=== PATIENT | female | born 1955 | race Caucasian/White ===

== ENCOUNTER 2019-07-31 13:48 | Emergency (ER) | payer BC ==
[2019-07-31 14:26] LABS: ABSOLUTE MONOCYTES (AUTO) 0.7 10^3/uL (0.1-1.4); BASOPHILS % (AUTO) 0.6 % (0-2); EOSINOPHILS % (AUTO) 0.5 % (0-6); HEMATOCRIT 43.9 % (36.0-47.0); HEMOGLOBIN 15.6 g/dL (12.0-15.5); LYMPHOCYTES % (AUTO) 20.2 % (13-45); MEAN CORPUSCULAR HEMOGLOBIN 33.7 pg (27.0-33.4); MEAN CORPUSCULAR HGB CONC 35.6 g/dL (32.0-36.0); MEAN CORPUSCULAR VOLUME 95 fl (80-97); MONOCYTES % (AUTO) 14.8 % (3-13); PLATELET COUNT 205 10^3/uL (150-450); RED BLOOD COUNT 4.64 10^6/uL (3.72-5.28); RED CELL DISTRIBUTION WIDTH 12.9 % (11.5-14.0); SEGMENTED NEUTROPHILS % (AUTO) 63.9 % (42-78); TOTAL CELLS COUNTED % (AUTO) 100 %; WHITE BLOOD COUNT 4.8 10^3/uL (4.0-10.5)
[2019-07-31 14:42] LABS: ALBUMIN 4.1 g/dL (3.5-5.0); ALKALINE PHOSPHATASE 52 U/L (38-126); ANION GAP 12 (5-19); ASPARTATE AMINO TRANSFERASE 37 U/L (14-36); BILIRUBIN,DIRECT 0.2 mg/dL (0.0-0.4); BILIRUBIN,TOTAL 0.8 mg/dL (0.2-1.3); BLOOD UREA NITROGEN 24 mg/dL (7-20); CALCIUM 8.9 mg/dL (8.4-10.2); CARBON DIOXIDE 25 mmol/L (22-30); CHLORIDE 101 mmol/L (98-107); CREATINE KINASE 40 U/L (30-135); GLUCOSE 133 mg/dL (75-110); TOTAL PROTEIN 7.2 g/dL (6.3-8.2)
[2019-07-31 14:54] LABS: CREATINE KINASE MB 0.99 ng/mL (<4.55)
[2019-07-31 14:58] LABS: TROPONIN I < 0.012 ng/mL
[2019-07-31] MEDS ORDERED: NORMAL SALINE 1000 ML 1,000 ML IV PRN (15:01)
--- NOTE | 2019-07-31 15:01 | ER Document Report ---
ED General - General Chief Complaint: Syncope Stated Complaint: WEAKNESS Time Seen by Provider: 07/31/19 14:49 Mode of Arrival: Medic Information source: Patient Notes: 64-year-old female arrives by EMS after she was having passing out spells while at work. She had a low blood pressure in route and was given IV fluids but felt much improved as she arrived. Patient reports she was having a foggy sensorium while at work. Patient has a history of viral myocarditis, patient was initially followed in 2012 for this by [facility] Dr. Goff and then in [place] Dr. Mar and has been followed by Dr. Turner in [place]. Patient reports she does not take any medicines to increase her blood pressure but does take a heart medicine Coreg and lisinopril. Patient takes 25 twice daily of the Coreg and we think the low-dose lisinopril 10 mg. Patient reports she does not take blood pressure medicines but this is for her heart. Patient's blood pressure was 83/66 upon arrival and I checked it after CT was done with a 119/73. Dinah who works for the patient there at the [facility] saw her pass out and fall backwards but 2 people helped her from falling. Patient has no complaint of head or neck pain or back pain. Also Mack the chairperson and Alanna who engages and financing is there at her bedside. Patient gives permission for her to be seen in front of them. Patient has increased BUN and creatinine of 24 and 1.49. Patient denies any chest pain back pain abdominal pain extremity pain. Indeed her fulfillment representative are very strong and she has moist palm. Ruby reports there is a little kiddy URI going around the office there at the [facility]. Patient reports some rhinorrhea and occasional cough. Says she has the same symptoms. All exposed to the little children coming into the [facility] but they deny any exposure to anyone from [place] and unknown if any of these have traveled himself. Patient denies any traveling herself within the last 6 months. She just got her house with a corporate pilot light on with gas but this has not been hooked up for heating gas at this time. She denies any cephalgia. Patient reports her blood pressure usually runs around 120/80 and does not know whether she has been in A. fib in the past. Indeed she did not realize that the lisinopril and Coreg are also blood pressure medications - HPI Onset: Just prior to arrival - Related Data Allergies/Adverse Reactions: No Known Allergies Allergy (Verified 07/31/19 14:22) Past Medical History - General Information source: Patient, Friend - Also Dinah Snidern and Mack good friends coworkers. - Social History Smoking Status: Never Smoker Cigarette use (# per day): No Chew tobacco use (# tins/day): No Smoking Education Provided: No Frequency of alcohol use: Social Drug Abuse: None Lives with: Other - Own home Family History: Reviewed & Not Pertinent Patient has suicidal ideation: No Patient has homicidal ideation: No - Past Medical History Cardiac Medical History: Reports: Other - Viral cardiomyopathy as per patient history Pulmonary Medical History: Reports: None EENT Medical History: Reports: None Endocrine Medical History: Reports: None Renal/ Medical History: Reports: None Past Surgical History: Reports: Hx Appendectomy Review of Systems - Review of Systems Constitutional: See HPI, Malaise, Weakness EENT: No symptoms reported Cardiovascular: No symptoms reported Respiratory: No symptoms reported Gastrointestinal: No symptoms reported Genitourinary: No symptoms reported Female Genitourinary: No symptoms reported Musculoskeletal: No symptoms reported Skin: No symptoms reported Hematologic/Lymphatic: No symptoms reported Neurological/Psychological: No symptoms reported Physical Exam - Vital signs Vitals: Resp Pulse Ox 21 H 98 07/31/19 13:56 07/31/19 13:56 Interpretation: Hypotensive - HEENT Head: Normocephalic Eyes: Normal Conjunctiva: Normal Cornea: Normal Extraocular movements intact: Yes Eyelashes: Normal Pupils: PERRL - Cardiovascular Rhythm: Irregularly irregular Heart sounds: Normal auscultation Murmur: No Friction rub: No Tom's crunch: No - Abdominal Inspection: Normal Distension: No distension Bowel sounds: Normal Tenderness: Nontender Organomegaly: No organomegaly - Back Back: Normal - Extremities General upper extremity: Normal inspection General lower extremity: Normal inspection - Neurological Neuro grossly intact: Yes Cognition: Normal Orientation: AAOx4 [place] Coma Scale Eye Opening: Spontaneous [place] Coma Scale Verbal: Oriented Speech: Normal Cranial nerves: Normal Cerebellar coordination: Normal - Psychological Associated symptoms: Normal affect - Skin Skin Temperature: Warm Skin Moisture: Dry Course - Vital Signs Vital signs: Temp Pulse Resp BP Pulse Ox 98.1 F 14 125/102 H 100 07/31/19 14:38 07/31/19 18:15 07/31/19 18:15 07/31/19 18:24 - Laboratory Result Diagrams: 07/31/19 14:04 07/31/19 14:04 Laboratory results interpreted by me: 07/31/19 07/31/19 14:04 14:04 Hgb 15.6 H MCH 33.7 H [place] % (Auto) 14.8 H BUN 24 H Creatinine 1.49 H Est GFR ( Amer) 43 L Est GFR (MDRD) Non-Af 35 L Glucose 133 H AST 37 H - Diagnostic Test Radiology reviewed: Reports reviewed - EKG Interpretation by Me EKG shows normal: Sinus rhythm Rate: Normal - 97 Rhythm: A.Fib Critical Care Note - Critical Care Note Total time excluding time spent on procedures (mins): 90 Comments: Patient's orthostatics were within normal limits and I agree with patient's wish to be discharged home. 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 Mills saw this patient at 1850 Discharge - Discharge Clinical Impression: Atrial fibrillation Qualifiers: Atrial fibrillation type: unspecified persistent Qualified Code(s): I48.19 - Other persistent atrial fibrillation Hypotension Qualifiers: Hypotension type: orthostatic hypotension Qualified Code(s): I95.1 - Orthostatic hypotension Condition: Good Disposition: HOME, SELF-CARE Additional Instructions: Follow-up with personal doctor; return to ER as needed ;take medicines as directed; encourage fluids; get blood pressures checked before taking blood pres sure medicines and keep a record of this for your mixed crop and livestock farm worker
--- NOTE | 2019-07-31 15:20 | RADIOLOGY REPORT (SQ) ---
EXAM DESCRIPTION: CT HEAD WITHOUT COMPLETED DATE/TIME: 07/31/2019 3:10 pm REASON FOR STUDY: dizzy COMPARISON: None. TECHNIQUE: Axial images acquired through the brain without intravenous contrast. Images reviewed wi th bone, brain and subdural windows. Additional sagittal and coronal reconstructions were generated. Images stored on PACS. All CT scanners at this facility use dose modulation, iterative reconstruction, and/or weight based d osing when appropriate to reduce radiation dose to as low as reasonably achievable (ALARA). [facility]: Dose Right [facility]: CareDose [facility]: Dose Right [facility]: Teradose 4D [facility]: Apollidon RADIATION DOSE: CT Rad equipment meets quality standard of care and radiation dose reduction techniq ues were employed. CTDIvol: 53.2 mGy. DLP: 1044 mGy-cm. mGy. LIMITATIONS: None. FINDINGS: VENTRICLES: Normal size and contour. CEREBRUM: No masses. No hemorrhage. No midline shift. No evidence for acute infarction. Normal gra y/white matter differentiation. No areas of low density in the white matter. CEREBELLUM: No masses. No hemorrhage. No alteration of density. No evidence for acute infarction. EXTRAAXIAL SPACES: No fluid collections. No masses. ORBITS AND GLOBE: No intra- or extraconal masses. Normal contour of globe without masses. CALVARIUM: No fracture. PARANASAL SINUSES: No fluid or mucosal thickening. SOFT TISSUES: No mass or hematoma. OTHER: No other significant finding. IMPRESSION: NORMAL BRAIN CT WITHOUT CONTRAST. EVIDENCE OF ACUTE STROKE: NO. COMMENT: Quality ID # [id number]: Final reports with documentation of one or more dose reduction techniques (e.g., Automated exposure control, adjustment of the mA and/or kV according to patient size, use of iterative reconstruction technique) TECHNICAL DOCUMENTATION: JOB ID: [id number] [employer]- All Rights Reserved Reading location - IP/workstation name: [email or web address]
--- NOTE | 2019-07-31 15:44 | RADIOLOGY REPORT (SQ) ---
EXAM DESCRIPTION: CHEST SINGLE VIEW COMPLETED DATE/TIME: 07/31/2019 3:25 pm REASON FOR STUDY: syncopy COMPARISON: None. EXAM PARAMETERS: NUMBER OF VIEWS: One view. TECHNIQUE: Single frontal radiographic view of the chest acquired. RADIATION DOSE: NA LIMITATIONS: None. FINDINGS: LUNGS AND PLEURA: No opacities, masses or pneumothorax. No pleural effusion. MEDIASTINUM AND HILAR STRUCTURES: No masses. Contour normal. HEART AND VASCULAR STRUCTURES: Heart normal in size. Normal vasculature. BONES: No acute findings. HARDWARE: None in the chest. OTHER: No other significant finding. IMPRESSION: NO ACUTE RADIOGRAPHIC FINDING IN THE CHEST. TECHNICAL DOCUMENTATION: JOB ID: [id number] [employer]@- All Rights Reserved Reading location - IP/workstation name: [email or web address]
--- NOTE | 2019-07-31 16:24 | EKG REPORT ---
SEVERITY:- ABNORMAL ECG - ATRIAL FIBRILLATION, V-RATE 68-121 BORDERLINE T ABNORMALITIES, ANT-LAT LEADS PROLONGED QT INTERVAL : Confirmed by: Marisol Funes MD 31-Jul-2019 16:23:24
[2019-07-31 18:50] LABS: A TYPE INFLUENZA AG NEGATIVE (NEGATIVE); B INFLUENZA AG NEGATIVE (NEGATIVE)
[2019-07-31 19:13] VITALS: BP 117/58
[2019-07-31] MEDS ORDERED: ACETAMINOPHEN 325 MG TABLET PO ONE (19:19)
--- NOTE | 2019-07-31 19:50 | PDOC CONSULTATION ---
Consultation Consult Date: 07/31/19 Attending physician:: JENNIFER MOSES JR Provider Consulted: CARRIE BARRY Consult reason:: Atrial fibrillation History of Present Illness History of Present Illness: DEMOND THOMAS is a 64 year old female With the following active problems 1. Paroxysmal atrial fibrillation 2. 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 She works at the [employer]. She presented with constitutional symptoms and felt quite weak. She was found to be in atrial fibrillation. Ventricular rate is mildly increased. She appears to h ave had mild viral illness. Since admission at which time she was initially hypotensive and was found to be in mild GIOVANA-she responded to intravenous fluid resuscitation and feels a lot better. She is not symptomatic presently from atrial fibrillation. She reports having been cardioverted once. He was treated with systemic anticoagulation with rivaroxaban until 2014. Subsequently based on discussion with physician systemic anticoagulation was discontinued. She has never been cardioverted apart from that one time and has not been subjected to other therapies. She works at the [employer]. No tobacco use is reported Past Medical History Cardiac Medical History: Reports: Other - Viral cardiomyopathy as per patient history Pulmonary Medical History: Reports: None EENT Medical History: Reports: None Endocrine Medical History: Reports: None Renal/ Medical History: Reports: None Past Surgical History Past Surgical History: Reports: Appendectomy Social History Lives with: Other - Own home Smoking Status: Never Smoker Family History Family History: Reviewed & Not Pertinent Parental Family History Reviewed: No - No familial illnesses Children Family History Reviewed: NA Sibling(s) Family History Reviewed.: NA Medication/Allergy Home Medications: Azithromycin [Zithromax 250 mg Tablet] 250 mg PO ASDIR PRN #6 tablet 07/31/19 Mupirocin [Bactroban 2% Ointment 22 gm] 1 applic NASL HSP PRN #1 tube 07/31/19 Allergies/Adverse Reactions: No Known Allergies Allergy (Verified 07/31/19 14:22) Review of Systems Constitutional: PRESENT: chills, weakness Eyes: PRESENT: as per HPI Nose, Mouth, and Throat: PRESENT: as per HPI Neurological: PRESENT: as per HPI Endocrine: PRESENT: as per HPI Hematologic/Lymphatic: PRESENT: as per HPI Physical Exam Vital Signs: Temp Pulse Resp BP Pulse Ox 100.9 F H 106 H 20 117/58 L 99 07/31/19 19:27 07/31/19 19:12 07/31/19 19:12 07/31/19 19:12 07/31/19 19:12 Intake & Output 07/30/19 07/31/19 08/01/19 06:59 06:59 06:59 Intake Total 1000 Balance 1000 Weight 102 kg General appearance: PRESENT: cooperative, mild distress Head exam: PRESENT: atraumatic, normocephalic Eye exam: PRESENT: conjunctiva pink, EOMI Respiratory exam: PRESENT: clear to auscultation luba, symmetrical, unlabored Cardiovascular exam: PRESENT: irregular rhythm, +S1, +S2 Pulses: PRESENT: normal radial pulses GI/Abdominal exam: PRESENT: soft Rectal exam: PRESENT: deferred Musculoskeletal exam: PRESENT: normal inspection Neurological exam: PRESENT: alert, awake, oriented to person, oriented to place, oriented to time, oriented to situation Psychiatric exam: PRESENT: appropriate affect Skin exam: PRESENT: dry, intact, normal color Results Laboratory Results: 07/31/19 14:04 07/31/19 14:04 07/31/19 07/31/19 07/31/19 14:04 14:04 14:04 WBC 4.8 RBC 4.64 Hgb 15.6 H Hct 43.9 MCV 95 MCH 33.7 H MCHC 35.6 RDW 12.9 Plt Count 205 Seg Neutrophils % 63.9 Sodium 138.2 Potassium 4.0 Chloride 101 Carbon Dioxide 25 Anion Gap 12 BUN 24 H Creatinine 1.49 H Est GFR ( Amer) 43 L Glucose 133 H Calcium 8.9 Magnesium 2.3 Total Bilirubin 0.8 AST 37 H Alkaline Phosphatase 52 Total Protein 7.2 Albumin 4.1 07/31/19 07/31/19 14:04 14:04 Creatine Kinase 40 CK-MB (CK-2) 0.99 Troponin I < 0.012 EKG Comments: Telemetry shows atrial fibrillation with rapid ventricular rate in the low 100 bpm range Twelve-lead EKG was reviewed independently by me and shows atrial fibrillation with controlled ventricular response. Impressions: Chest X-Ray 07/31/19 00:00 IMPRESSION: NO ACUTE RADIOGRAPHIC FINDING IN THE CHEST. Head CT 07/31/19 14:52 IMPRESSION: NORMAL BRAIN CT WITHOUT CONTRAST. EVIDENCE OF ACUTE STROKE: NO. Assessment & Plan - Diagnosis (1) Atrial fibrillation Qualifiers: Atrial fibrillation type: unspecified persistent Qualified Code(s): I48.19 - Other persistent atrial fibrillation; I48.1 - Persistent atrial fibrillation Plan: Atrial fibrillation with mildly increased ventricular rate probably in the setting of viral illness. She was also volume depleted at presentation and appears to be mildly volume depleted on exam Recommended holding home beta-alo and BAILEY inhibitor given volume depletion and hypotension. Would resume beta-alo sooner. I feel that given her history of paroxysmal atrial fibrillation and with report of structural heart disease i.e. myocarditis systemic anticoagulation with oral agents would be ideal. I discussed this with the patient. She is going to talk to her physician about this. It would be reasonable to continue beta-alo. This will bring down the ventricular rate and also suppress PV triggers. Prompt outpatient follow-up with the margarine churn operator as recommended. (2) Hypotension Qualifiers: Hypotension type: orthostatic hypotension Qualified Code(s): I95.1 - Orthostatic hypotension Plan: Patient has continued medications for myocarditis. This is resulted in some hyp otension in the face of volume depletion secondary to viral illness and probably poor oral intake today. It would be reasonable to hold off on these medications at the moment. - Notes Notes: Patient feels much better now and is desiring to go home. Prompt outpatient follow-up was recommended.
== END 2019-07-31 19:29 | disposition home or self-care (01) ==
LOC: ER 13:48
DX: I95.1 Orthostatic hypotension (principal); I48.19 Other persistent atrial fibrillation; R05 Cough; R53.81 Other malaise; R53.1 Weakness; Z86.79 Personal history of other diseases of the circulatory system; Z79.899 Other long term (current) drug therapy; J34.89 Other specified disorders of nose and nasal sinuses
CPT/HCPCS: 93005; 99291; 99292; 96360; 36415; 87040; 82553; 82550; 83735; 85025; 87077; 80053; 84484; 87804; 87150 ×26; 71045; 70450; 93010; J7030

== ENCOUNTER 2019-08-08 13:00 | Day surgery (SDC) | payer BC ==
[~2019-08-08 13:00] MED LIST: EPHEDRINE SULFATE INJ 50 MG/1 ML AMPULE ONE; PROPOFOL INJ 200 MG/20 ML VIAL IV ONE
[2019-08-08 15:51] VITALS: BP 137/80
--- NOTE | 2019-08-08 16:34 | PDOC CONSULTATION ---
Consultation Consult Date: 08/08/19 Attending physician:: CARRIE BARRY Provider Consulted: CARRIE BARRY Consult reason:: Atrial fibrillation History of Present Illness History of Present Illness: DEMOND THOMAS is a 64 year old female With medical history of myocarditis with subsequent normalization. She has history of atrial fibrillation and has been cardioverted previously. She presented to the hospital with atrial fibrillation rapid ventricular response. She was started on rate control medications and was discharged. She saw me in the office and we discussed treatment options and she wanted to pursue rhythm shinto. We decided to proceed with direct-current cardioversion. Prior to this patient was asked to start taking systemic anticoagulation in the form of apixaban orally. Apixaban 5 mg twice daily was prescribed and samples of this medicine were given. I informed the patient that patient has been taking this medication. Her other medications include carvedilol and lisinopril for cardiomyopathy. Since our office visit there has been no change in history. Patient is a non-smoker. She drinks alcohol occasionally. She works at the [employer]. There is no familial cardiac events reported. Past Medical History Cardiac Medical History: Denies: Coronary Artery Disease, Myocardial Infarction, Hypertension Pulmonary Medical History: Denies: Asthma, Bronchitis, Chronic Obstructive Pulmonary Disease (COPD), Pneumonia Neurological Medical History: Denies: Seizures Musculoskeltal Medical History: Denies: Arthritis Hematology: Denies: Anemia Past Surgical History Past Surgical History: Reports: Appendectomy Social History Smoking Status: Never Smoker Family History Family History: Reviewed & Not Pertinent Parental Family History Reviewed: No - No familial cardiac illnesses Children Family History Reviewed: NA Sibling(s) Family History Reviewed.: NA Medication/Allergy Home Medications: Carvedilol [Coreg] 2 tab PO BID 08/08/19 Lisinopril [Zestril] 1 tab PO DAILY 08/08/19 Allergies/Adverse Reactions: No Known Allergies Allergy (Verified 07/31/19 14:22) Review of Systems Constitutional: PRESENT: as per HPI, weakness Cardiovascular: PRESENT: palpitations Gastrointestinal: PRESENT: as per HPI Genitourinary: PRESENT: as per HPI Physical Exam Vital Signs: Temp Pulse Resp BP Pulse Ox 97.5 F 71 18 137/80 H 100 08/08/19 15:30 08/08/19 15:30 08/08/19 15:30 08/08/19 15:30 08/08/19 15:30 Intake & Output 08/07/19 08/08/19 08/09/19 06:59 06:59 06:59 Intake Total 672 Balance 672 Weight 99.79 kg General appearance: PRESENT: no acute distress, cooperative, obese Head exam: PRESENT: atraumatic, normocephalic Eye exam: PRESENT: conjunctiva pink, EOMI Mouth exam: PRESENT: moist Respiratory exam: PRESENT: clear to auscultation luba, symmetrical, unlabored Cardiovascular exam: PRESENT: irregular rhythm, +S1, +S2 Pulses: PRESENT: normal radial pulses GI/Abdominal exam: PRESENT: soft Rectal exam: PRESENT: deferred Musculoskeletal exam: PRESENT: ambulatory, normal inspection Neurological exam: PRESENT: alert, awake, oriented to person, oriented to place, oriented to time, oriented to situation Psychiatric exam: PRESENT: appropriate affect Skin exam: PRESENT: dry, intact, normal color Results EKG Comments: Telemetry shows atrial fibrillation with rapid ventricular response. Assessment & Plan - Diagnosis (1) Atrial fibrillation with rapid ventricular response Is this a current diagnosis for this admission?: Yes Plan: We will proceed with transesophageal echocardiogram. Risk and benefits of the procedure were discussed in the office and were reaffirmed today. Risks include damage to the lining of the esophagus, esophageal perforation, reactions to any of the medications used during the procedure. If there is no left atrial appendage thrombus will proceed with cardioversion. Cardioversion can result in skin mendoza or skin irritation or other arrhythmias for treatment for which can again be cardioversion. Small risk of stroke exists despite systemic anticoagulation. - Notes Notes: Anticipated echocardiogram. If there is no elevated appendage or other cardiac thrombus will proceed with direct-current cardioversion.
--- NOTE | 2019-08-09 13:58 | Discharge Summary ---
Discharge Summary (SDC) - Discharge Final Diagnosis: Atrial fibrillation Condition: Stable Forms: ASU Anesthesia D/C Instruction, Discharge POC-Surgical Service Treatment or Instructions: WITHIN 24 HOURS: NO DRIVING, NO DRINKING ALCOHOL. NO IMPORTANT DECISION. REST. NO EXERCISE TODAY. CONTINUE HOME MEDICATION. SHORTNESS OF BREATH AND CHEST PAIN , GO TO EMERGENCY DEPARTMENT RIGHT AWAY. PLEASE SET UP A FOLLOW UP WITH DR. BARRY NEXT MONTH. Referrals: CARRIE BARRY MD [ACTIVE STAFF] - Discharge Activity: Bedrest, No Lifting/Push/Pulling Home Care Assistance: None Needed Report the Following to Your Physician Immediately: Shortness of Breath, Increase in Pain
--- NOTE | 2019-08-09 18:22 | Operative Report ---
Bedside Procedure - History of Present Illness History of Present Illness: DEMOND THOMAS is a 64 year old female With medical history of myocarditis with subsequent normalization. She has history of atrial fibrillation and has been cardioverted previously. She presented to the hospital with atrial fibrillation rapid ventricular response. She was started on rate control medications and was discharged. She saw me in the office and we discussed treatment options and she wanted to pursue rhythm cheondoism. We decided to proceed with direct-current cardioversion. Prior to this patient was asked to start taking systemic anticoagulation in the form of apixaban orally. Apixaban 5 mg twice daily was prescribed and samples of this medicine were given. I informed the patient that patient has been taking this medication. Her other medications include carvedilol and lisinopril for cardiomyopathy. Since our office visit there has been no change in history. Patient is a non-smoker. She drinks alcohol occasionally. She works at the [employer]. There is no familial cardiac events reported. Indication for Procedure: Atrial fibrillation Date: 08/08/19 Provider: CARRIE BARRY - Additional Procedures Dressing change Time performed: 03:00 Notes: Date of procedure 06/07/2020 Indication: Atrial fibrillation with rapid ventricular response Anesthesia: See Anesthesia notes Procedure: The patient was brought to the OR in a fasting and nonsedated state. Transesophageal echocardiogram was performed initially showed preserved left ventricular ejection fraction and no left atrial appendage thrombus. There were no other cardiac thrombi visible. While the patient was still comfortably sedated cardioversion was performed across the patches placed in an anteroposterior fashion using 200 J synchronized biphasic Direct current. This resulted in immediate cheondoism of sinus rhythm. Conclusion Successful cardioversion of atrial fibrillation to sinus rhythm Recommendations Systemic anticoagulation with oral agent at least 6 weeks Out patient follow up Continue medications
== END 2019-08-08 15:40 | disposition home or self-care (01) ==
LOC: OROUT 13:00
PROVIDERS: ATTEND Internal Medicine
DX: I48.19 Other persistent atrial fibrillation (principal); Z79.899 Other long term (current) drug therapy
CPT/HCPCS: 01922; J2704; 1922; 92960; J3490